=== PATIENT | male | born 1980 | race Caucasian/White ===

== ENCOUNTER 2017-05-04 10:19 | Emergency (ER) | payer OTHER ==
[~2017-05-04] VITALS: Ht 188 cm; Wt 98.2 kg
[2017-05-04 12:17] VITALS: BP 136/88
== END 2017-05-04 12:18 | disposition home or self-care (01) ==
LOC: EME 10:19
PROC: 3E0234Z Introduction of Serum, Toxoid and Vaccine into Muscle, Percutaneous Approach (ICD-10-PCS; principal; 2017-05-04)
DX: S61.452A Open bite of left hand, initial encounter (principal); W55.01XA Bitten by cat, initial encounter; Z23 Encounter for immunization; Z20.3 Contact with and (suspected) exposure to rabies
CPT/HCPCS: 99281; 99284

== ENCOUNTER 2017-05-07 06:19 | Emergency (ER) | payer OTHER ==
[~2017-05-07] VITALS: Ht 188 cm; Wt 99.4 kg
[2017-05-07 07:29] VITALS: BP 147/99
== END 2017-05-07 07:30 | disposition home or self-care (01) ==
LOC: EME 06:19
PROC: 3E0234Z Introduction of Serum, Toxoid and Vaccine into Muscle, Percutaneous Approach (ICD-10-PCS; principal; 2017-05-07)
DX: Z23 Encounter for immunization (principal); S61.052D Open bite of left thumb without damage to nail, subsequent encounter; W55.01XD Bitten by cat, subsequent encounter
CPT/HCPCS: 99281; 99283